=== PATIENT | female | born 2000 | race Caucasian/White ===

== ENCOUNTER → 2024-01-08 17:12 | Outpatient (REF) | payer BC, SELFPAY ==
[2024-01-08 17:40] LABS: Urine Albumin Negative (Neg - Trace); Urine Bilirubin Negative (Negative); Urine Character Clear (Clear); Urine Color Straw; Urine Glucose Negative (Negative); Urine Ketone Trace (Negative); Urine Leukocyte Negative (Negative); Urine Nitrite Negative (Negative); Urine Occult Blood Negative (Negative); Urine Urobilinogen Negative (Neg - 1+)
== END ==
LOC: REG 17:12
PROVIDERS: ATTENDING PHYSICIAN Specialist
DX: N39.0 Urinary tract infection, site not specified (principal)
CPT/HCPCS: 81003; 87086

== ENCOUNTER → 2025-06-07 11:41 | Outpatient (REF) | payer BC, SELFPAY | LOC: RAD 11:41 | PROVIDERS: ATTENDING PHYSICIAN Family Medicine; FAMILY PHYSICIAN Family Medicine | DX: S19.9XXA Unspecified injury of neck, initial encounter (principal) | CPT/HCPCS: 72052 ==